=== PATIENT | female | born 1985 | race Caucasian/White ===

== ENCOUNTER 2017-02-05 15:03 | Outpatient (CLI) | payer OTHER | END 2017-02-05 15:04 | disposition home or self-care (01) | DX: M85.861 Other specified disorders of bone density and structure, right lower leg (principal); Z82.62 Family history of osteoporosis ==

== ENCOUNTER 2017-02-09 11:50 | Outpatient (CLI) | payer OTHER ==
[2017-02-09] MEDS ORDERED: GADOPENTETATE DIMEGLUMINE 5 ML VIAL IVP ONE (13:25)
[2017-02-09] MEDS ORDERED: BUFFERED LIDOCAINE 10 ML SYRINGE IU ONE (13:25)
[2017-02-09] MEDS ORDERED: IOTHALAMATE MEGLUMINE 50 ML VIAL IVP ONE (13:25)
[2017-02-09] MEDS ORDERED: LIDOCAINE 1% 50 ML MDV SUBQ ONE (13:25)
== END 2017-02-09 11:51 | disposition home or self-care (01) ==
DX: M25.551 Pain in right hip (principal); M16.11 Unilateral primary osteoarthritis, right hip; M51.37 Other intervertebral disc degeneration, lumbosacral region; M85.69 Other cyst of bone, multiple sites; M25.461 Effusion, right knee; M23.91 Unspecified internal derangement of right knee
CPT/HCPCS: 20610; 73721; 73722; 77002; Q9961

== ENCOUNTER 2017-04-03 09:55 | Outpatient (CLI) | payer OTHER | END 2017-04-03 09:56 | disposition home or self-care (01) | LOC: SC 09:55 | PROVIDERS: ATTEND Internal Medicine Pulmonary Disease | DX: G47.30 Sleep apnea, unspecified (principal); G47.8 Other sleep disorders; R06.83 Snoring; G47.10 Hypersomnia, unspecified; G47.00 Insomnia, unspecified | CPT/HCPCS: 99203; 99212 ==

== ENCOUNTER 2017-04-04 22:17 | Outpatient (CLI) | payer OTHER | END 2017-04-04 22:18 | disposition home or self-care (01) | LOC: SC 22:17 | PROVIDERS: ATTEND Internal Medicine Pulmonary Disease | DX: G47.30 Sleep apnea, unspecified (principal); G47.8 Other sleep disorders | CPT/HCPCS: 95810 ==

== ENCOUNTER 2017-04-18 08:52 | Outpatient (CLI) | payer OTHER | END 2017-04-18 08:53 | disposition home or self-care (01) | LOC: SC 08:52 | PROVIDERS: ATTEND Nurse Practitioner Family | DX: R06.83 Snoring (principal); G47.00 Insomnia, unspecified; R53.83 Other fatigue | CPT/HCPCS: 99212; 99213 ==

== ENCOUNTER 2017-05-24 11:16 | Outpatient (CLI) | payer OTHER | END 2017-05-24 11:17 | disposition home or self-care (01) | LOC: SC 11:16 | PROVIDERS: ATTEND Nurse Practitioner Family | DX: G47.00 Insomnia, unspecified (principal) | CPT/HCPCS: 99212; 99214 ==

== ENCOUNTER 2017-06-21 08:58 | Outpatient (CLI) | payer OTHER | END 2017-06-21 08:59 | disposition home or self-care (01) | LOC: SC 08:58 | PROVIDERS: ATTEND Nurse Practitioner Family | DX: G47.00 Insomnia, unspecified (principal) | CPT/HCPCS: 99212; 99214 ==

== ENCOUNTER 2017-09-17 12:40 | Outpatient (CLI) | payer OTHER ==
[~2017-09-17 12:40] MED LIST: GADOBUTROL 10 MMOL/10 ML VIAL ONE
[2017-09-17] MEDS ORDERED: GADOBUTROL 10 MMOL/10 ML VIAL IVP ONE (13:40)
--- NOTE | 2017-09-17 15:29 | MRI Report ---
EXAM: MRI BRAIN WITHOUT AND WITH CONTRAST EXAM DATE: 09/17/2017 01:52 PM. CLINICAL HISTORY: 12-month history of bilateral pulsatile tinnitus. Right occipital headache. COMPARISON: None. MRA of the head 09/17/2017. TECHNIQUE: Multiplanar, multisequence T1-weighted and fluid-sensitive MR sequences of the brain were performed. Sequences optimized for routine and IAC evaluation. Other: None. IV Contrast: 9 cc Gadavis t. FINDINGS: Brain Volume: Normal for age. Parenchyma/Dura: No acute hemorrhage, mass, or acute infarct. No white matter lesions identified.No a bnormal enhancement. No abnormal enhancement. Ventricles/Cisterns: No hydrocephalus. No abnormal extra-axial fluid collection or hemorrhage. Orbits: Symmetric and unremarkable. Sella Turcica: Note is made of mild CSF prominence in the superior aspect of the sella turcica center ed to the right of midline. This measures approximately 4 x 7 x 7 mm in size. This likely represents a partially empty sella turcica. Pituitary tissue inferior and peripheral to this is unremarkable. Pi tuitary stalk is unremarkable. The cavernous sinuses, suprasellar cistern, and optic chiasm are unrem arkable. IAC: Internal auditory canals and cerebellopontine angle cisterns are symmetric and unremarkable. No abnormal enhancement. Note is made of a vascular loop within the IAC bilaterally. The inner ear struc tures are symmetric and unremarkable. Vasculature: Normal signal flow void is seen in the major arterial structures at the skull base. The dural sinuses are patent and enhance normally. Sinuses: Mild mucosal thickening is seen throughout the paranasal sinuses. No opacification or layeri ng fluid levels. The mastoid air cells are clear. Bones: No focal pathologic appearing marrow signal changes. Other: None. IMPRESSION: 1. Normal MRI of the brain without and with contrast. 2. Normal MRI of the IAC and posterior fossa. [facility] Referring Provider Line: [phone] SITE ID: [id number]
--- NOTE | 2017-09-17 15:29 | MRI Report ---
EXAM MRA BRAIN EXAM DATE: 09/17/2017 01:19 PM. CLINICAL HISTORY: 12 month history of bilateral pulsatile tinnitus. Right occipital headache. COMPARISON: None. MRI of the head 09/17/2017. TECHNIQUE: Multiplanar, multisequence MRA sequences of the brain were performed. Other: None. Post-pr ocessing: Multiplanar 3D MIP reconstructions. IV Contrast: None. FINDINGS: RIGHT Internal Carotid (ICA): No aneurysm, stenosis or anomaly. Middle Cerebral (MCA): No aneurysm, stenosis or anomaly. Anterior Cerebral (ISABEL): No aneurysm, stenosis or anomaly. Note is made of azygos A2 and A3 segment. Posterior Cerebral (PATROL MAN): No aneurysm, stenosis or anomaly. Posterior Communicating (P-COM): Not visualized. Vertebral: No aneurysm, stenosis or anomaly in the visualized upper vertebral artery. LEFT Internal Carotid (ICA): No aneurysm, stenosis or anomaly. Middle Cerebral (MCA): No aneurysm, stenosis or anomaly. Anterior Cerebral (ISABEL): No aneurysm, stenosis or anomaly. Note is made of azygos A2 and A3 segment. Posterior Cerebral (PATROL MAN): No aneurysm, stenosis or anomaly. Posterior Communicating (P-COM): Not visualized. Vertebral: No aneurysm, stenosis or anomaly in the visualized upper vertebral artery. MIDLINE Anterior Communicating (A-COM): Not present. Bilateral A1 segments join forming azygos A2 segment of ISABEL. Basilar artery: No aneurysm, stenosis or anomaly. Bilateral AICA and superior cerebellar arteries are unremarkable. Other: None. IMPRESSION: 1. Normal brain MRA. No stenoses or aneurysms. 2. Note is made of azygos A2/A3 segment of ISABEL. [facility] Referring Provider Line: [phone] SITE ID: [id number]
== END 2017-09-17 12:41 | disposition home or self-care (01) ==
LOC: DI 12:40
PROVIDERS: ATTEND Registered Nurse Diabetes Educator
DX: H93.A3 Pulsatile tinnitus, bilateral (principal); R51 Headache
CPT/HCPCS: 70544; 70553; A9585

== ENCOUNTER 2017-12-13 11:06 | Outpatient (CLI) | payer OTHER ==
--- NOTE | 2017-12-13 19:43 | XRAY Report ---
DATE OF SERVICE: 12/13/2017 THREE VIEW RIGHT ANKLE: 12/13/2017 CLINICAL INDICATION: Pain, history of fractures and hardware removal. AP, lateral, oblique views of the right ankle demonstrate postoperative changes. Mild osteoarthritis is seen in the tibiotalar joint. There is no evidence of acute fracture. A small plantar calcaneal spur is present. IMPRESSION: Mild osteoarthritic changes. Previous fractures and hardware removal. TD: 12/13/2017 20:42
== END 2017-12-13 11:07 | disposition home or self-care (01) ==
LOC: DI 11:06
DX: M19.071 Primary osteoarthritis, right ankle and foot (principal)

== ENCOUNTER 2020-06-23 08:07 | Outpatient (CLI) | payer OTHER ==
[2020-06-23] MEDS ORDERED: GADOBUTROL 10 MMOL/10 ML VIAL ONE (09:13)
[2020-06-23] MEDS ORDERED: GADOBUTROL 10 MMOL/10 ML VIAL IVP ONE (09:56)
--- NOTE | 2020-06-23 12:45 | MRI Report ---
PROCEDURE: Ankle RT W/WO INDICATIONS: RT ANKLE POSTRAUMATIC ARTHRITIS TECHNIQUE: Right ankle was images with the following pulse sequences Sagittal T1-weighted, fat-suppressed T2-weighted, Coronal T1-weighted, fat-suppressed T2-weighted, Axial proton density weighted, fat-suppressed T2-weighted Postcontrast axial, sagittal and coronal fat-suppressed T1-weighted. COMPARISON: None. FINDINGS: Motion degradation of the study. Postsurgical changes and associated bright dark artifact involving the distal tibia and fibula. No geronimo spicious enhancement seen. Bones and joints: No acute fracture. No suspicious osseous lesion of the midfoot or hindfoot bones is present. No joint effusions. No osteochondral defects. There is diffuse hindfoot and midfoot degenerative spurring and subchondral sclerosis Medial structures: Deltoid ligament intact. Spring ligament intact. Posterior tibialis intact Flexor digitorum longus intact Flexor hallucis longus intact Posterior tibial neurovascular bundle appears normal within the tarsal tunnel, without extrinsic mass effect. Lateral structures: Anterior talofibular ligament intact. Calcaneofibular ligament intact. Posterior talofibular ligament intact. Anterior tibiofibular ligament intact. Posterior tibiofibular ligament intact. Peroneus longus normal Peroneus brevis normal. Sinus tarsi demonstrates normal fatty signal. Anterior structures: Dorsal talonavicular ligament intact. Tibialis anterior normal Extensor hallucis longus normal. Extensor digitorum longus normal Posterior and plantar structures: Mild low signal thickening of the distal Achilles tendon suggestive of chronic tendinopathy. The medial and lateral bands of the plantar fascia are within normal limits. 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
== END 2020-06-23 08:08 | disposition home or self-care (01) ==
LOC: DI 08:07
PROVIDERS: ATTEND Internal Medicine
DX: M19.171 Post-traumatic osteoarthritis, right ankle and foot (principal); M67.971 Unspecified disorder of synovium and tendon, right ankle and foot
CPT/HCPCS: 73723; A9585

== ENCOUNTER 2023-05-24 16:06 | Emergency (ER) | payer OTHER ==
[2023-05-24] MEDS ORDERED: diphenhydrAMINE INJ 50 MG/ML VIAL IVP STA (16:13)
[2023-05-24] MEDS ORDERED: FAMOTIDINE 20 MG/2 ML VIAL IVP STA (16:14)
[2023-05-24] MEDS ORDERED: methylPREDNISolone SUCCINATE 125 MG/2 ML VIAL IVP STA (16:14)
[2023-05-24] MEDS ORDERED: EPINEPHrine 1 MG/ML AMP IM STA (16:14)
--- NOTE | 2023-05-24 16:14 | ED Physician Documentation ---
History of Present Illness - Stated complaint Stated Complaint: HIVES, SOA - History obtained from History obtained from: Patient - Additonal information Additional information: 38-year-old woman with history of dermatographism, photodermatitis, eczema who routinely takes cetirizine and hydroxyzine. Her usual rash has been worse than yesterday and over the last few hours has had some sensation of throat and tongue swelling and tightness. That is not something she is ever had with this before. She is never used epinephrine. PD PAST MEDICAL HISTORY - Past Medical History Derm: None - Past Surgical History Past Surgical History: No - Present Medications Home Medications: Ambulatory Orders Medication Instructions Recorded Confirmed Ibuprofen 600 mg PO Q6HR PRN #30 tablet 05/11/14 diphenhydrAMINE [Benadryl] 50 mg PO Q4-6H PRN #30 capsule 07/17/16 EPINEPHrine [Epinephrine] 0.3 mg IJ ONCE PRN #2 each 05/24/23 predniSONE [Deltasone] 60 mg PO DAILY 5 Days #15 tablet 05/24/23 - Allergies Allergies/Adverse Reactions: Allergies Allergy/AdvReac Type Severity Reaction Status Date / Time No Known Drug Allergies Allergy Verified 05/11/14 17:33 - Social History Does the pt smoke?: Yes Smoking Status: Current every day smoker Does the pt drink ETOH?: Yes Does the pt have substance abuse?: Yes - Immunizations Immunizations are current?: Yes PD ED PE NORMAL - Vitals Vital signs reviewed: Yes - General General: Alert and oriented X 3, No acute distress - HEENT HEENT: Other (Visualized portions of the oropharynx and phonation appear normal.) - Respiratory Respiratory: No respiratory distress, Clear bilaterally - Derm Derm: Normal color, Warm and dry - Extremities Extremities: Other (Diffuse erythroderma with more raised hives especially on the upper arms.) - Neuro Neuro: Alert and oriented X 3, Normal speech Results - Vitals Vitals: Vital Signs - 24 hr 05/24/23 05/24/23 05/24/23 16:12 16:23 16:48 Temperature 37.2 C Heart Rate 87 92 84 Respiratory 19 12 Rate Blood Pressure 156/104 H 121/80 O2 Saturation 98 97 99 05/24/23 17:16 Temperature Heart Rate 80 Respiratory 18 Rate Blood Pressure 117/63 O2 Saturation 96 Oxygen O2 Source Room air PD Medical Decision Making - ED course ED course: 38-year-old woman with history of multiple issues with her skin now presents wit h throat swelling. Her phonation and exam are normal. That said out of abundance of caution she was administered epinephrine IM which she did get relief from but it made her feel jittery. She also received IV steroids, Benadryl, and Pepcid here. She was observed till little after 6:15 PM without recurrence of symptoms. Departure - Departure Disposition: 01 Home, Self Care Clinical Impression: Allergic urticaria Condition: Good Record reviewed to determine appropriate education?: Yes Instructions: ED Allergic Reaction General Other Prescriptions: predniSONE [Deltasone] 60 mg PO DAILY 5 Days #15 tablet EPINEPHrine [Epinephrine] 0.3 mg IJ ONCE PRN #2 each PRN Reason: Allergy Symptoms Comments: You were seen today for either an allergic reaction or some other autoimmune process that give you more severe symptoms than usual. You had improvement with epinephrine, IV steroids, Benadryl, Pepcid. 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 Return for new or worsening symptoms. I did prescribe epinephrine and steroids. The steroids should be taken for the next few days. The epinephrine if you have a recurrence of severe symptoms. Forms: Activity restrictions
[2023-05-24 18:18] VITALS: BP 111/73
== END 2023-05-24 18:14 | disposition home or self-care (01) ==
LOC: ED 16:06
DX: L50.0 Allergic urticaria (principal); F17.200 Nicotine dependence, unspecified, uncomplicated
CPT/HCPCS: 36415; 96372; 96374; 99283; 99284; J1200

== ENCOUNTER 2023-06-13 10:44 | Outpatient (CLI) | payer OTHER ==
--- NOTE | 2023-06-25 11:25 | Ultrasound Report ---
LIMITED ULTRASOUND OF LEFT BREAST: 06/13/2023 CLINICAL: Nipple discharge, both breasts, not bloody. Bloody nipple discharge left breast. Comparison is made to exam dated: 06/13/2023 mammogram - [facility]. Color flow ultrasound of the left breast retroareolar was performed. [place] scale images of the real- time examination were reviewed. No significant abnormalities were seen sonographically in the left breast. IMPRESSION: NEGATIVE There is no sonographic evidence of malignancy. There is no abnormality seen in the left breast to correspond with the non-bloody discharge from the nipple, however, clinical correlation and clinical followup are recommended. Return to annual mammogram screening schedule is recommended. Due to patient's discharge symptoms and elevated lifetime risk, please consider referral for breast M RI. This exam was interpreted at Station ID: [id number]. Electronically Signed By: Roel Cuevas M.D. lc/:06/25/2023 10:55:07 Ultrasound BI-RADS: 1 Negative BI-RADS CATEGORY: (1) - 1 RECOMMENDATION: (ANNUAL) - Recommend routine annual screening mammography. [id number] return to screening LATERALITY: (B)
--- NOTE | 2023-06-25 11:25 | Ultrasound Report ---
LIMITED ULTRASOUND OF RIGHT BREAST: 06/13/2023 CLINICAL: Nipple discharge, both breasts, not bloody. Bloody nipple discharge left breast. Comparison is made to exam dated: 06/13/2023 mammogram - [facility]. Ultrasound of the right breast retroareolar was performed. [place] scale images of the real-time examin ation were reviewed. No significant abnormalities were seen sonographically in the right breast. IMPRESSION: NEGATIVE There is no sonographic evidence of malignancy. There is no abnormality seen in the right breast to correspond with the bloody discharge from the nip ple, however, clinical correlation and clinical followup are recommended. Due to patient's discharge symptoms and elevated lifetime risk, please consider referral for breast M RI. Return to annual mammogram screening schedule is recommended. This exam was interpreted at Station ID: [id number]. Electronically Signed By: Roel Cuevas M.D. lc/:06/25/2023 10:55:26 letter sent: No_Letter Ultrasound BI-RADS: 1 Negative BI-RADS CATEGORY: (1) - 1 RECOMMENDATION: (ANNUAL) - Recommend routine annual screening mammography. [id number] return to screening LATERALITY: (B)
--- NOTE | 2023-06-25 11:25 | Mammography Report ---
BILATERAL DIGITAL DIAGNOSTIC MAMMOGRAM 3D/2D: 06/13/2023 CLINICAL: Baseline exam. Bloody nipple discharge left breast. No prior exams were available for comparison. Both breasts are heterogeneously dense, which may obscure small masses (category c / 51-75% glandular tissue). No significant masses, calcifications, or other findings are seen in either breast. IMPRESSION: INCOMPLETE: NEEDS ADDITIONAL IMAGING EVALUATION There is no abnormality seen in the right breast to correspond with the non-bloody discharge from the nipple, however, ultrasound is recommended. There is no abnormality seen in the left breast to susy espond with the bloody discharge from the nipple, however, ultrasound is recommended. Based on Tyrer-Cuzick model (a risk assessment model), the patient's lifetime risk is 25.4% and her 1 0 year risk is 3.1%. If a patient has an elevated risk, a more comprehensive evaluation should be con sidered and/or a referral to a genetic counselor. The [place] [employer], [employer], and NCCN Guidelines advise the consideration of Breast MRI as an adjunct to screening mammog jaden in patients whose "Lifetime risk to develop breast cancer" is 20% or higher. This exam was interpreted at Station ID: [id number]. NOTE: For mammograms, a report in lay terms will be sent to the patient. Approximately 15% of breast malignancies will not be visualized mammographically. In the management of a palpable breast mass, a negative mammogram must not discourage biopsy of a clinically suspicious lesion. Electronically Signed By: Roel Cuevas M.D. lc/:06/13/2023 11:59:41 ACR BI-RADS Category 0: Incomplete 3340F PARENCHYMAL PATTERN: (D) - The breast(s) demonstrate(s) heterogeneously dense fibroglandular parenchy ma. BI-RADS CATEGORY: (0) - 0 Ultrasound [id number] Immediate follow-up LATERALITY: (B)
== END 2023-06-13 10:45 | disposition home or self-care (01) ==
LOC: DI 10:44
PROVIDERS: ATTEND Nurse Practitioner Primary Care
DX: N64.52 Nipple discharge (principal)

== ENCOUNTER 2023-07-31 09:28 | Emergency (ER) | payer OTHER ==
--- NOTE | 2023-07-31 10:40 | ED Physician Documentation ---
PD HPI LOWER EXT INJURY - Stated complaint Stated Complaint: LT HIP PX - Chief complaint Chief Complaint: General - History obtained from History obtained from: Patient - History of Present Illness Type of injury: Twist (she had been moving furniture and boxes earlier in the day and then was just standing and turning a bit, with onset of pain left anterior hip.). No: Fall Where injury occurred: Home Timing - onset: Yesterday Timing - duration: Days (1) Timing - details: Abrupt onset, Still present Worsened by: Moving. No: Palpating Associated symptoms: No: Weakness, Numbness, Swelling Similar symptoms before: Has not had sx before (history of back pain and other muscle pains. No prior hip pain. No systemic arthritis.) Review of Systems Constitutional: denies: Fever, Chills Musculoskeletal: reports: Back pain (chronic) Neurologic: denies: Focal weakness, Numbness PD PAST MEDICAL HISTORY - Past Medical History Derm: None - Past Surgical History Past Surgical History: No - Present Medications Home Medications: Ambulatory Orders Medication Instructions Recorded Confirmed Ibuprofen 600 mg PO Q6HR PRN #30 tablet 05/11/14 07/31/23 EPINEPHrine [Epinephrine] 0.3 mg IJ ONCE PRN #2 each 05/24/23 07/31/23 Cyclobenzaprine [Flexeril] 10 mg PO TID PRN 07/31/23 07/31/23 Gabapentin [Neurontin] 300 mg PO TID 07/31/23 07/31/23 Oxycodone HCl/Acetaminophen 1 each PO Q6H PRN #18 tablet 07/31/23 [Percocet 5-325 mg Tablet] - Allergies Allergies/Adverse Reactions: Allergies Allergy/AdvReac Type Severity Reaction Status Date / Time No Known Drug Allergies Allergy Verified 07/31/23 09:35 - Social History Does the pt smoke?: Yes Smoking Status: Current every day smoker Does the pt drink ETOH?: Yes Does the pt have substance abuse?: Yes - Immunizations Immunizations are current?: Yes - POLST Patient has POLST: No PD ED PE NORMAL - Vitals Vital signs reviewed: Yes - General General: Alert and oriented X 3, Well developed/nourished - Derm Derm: Normal color, Warm and dry, No rash - Extremities Extremities: Other (pain left anterior hip, most with internal rotation and flexion of hip. Not as much with external rotation and extension. ) - Neuro Neuro: Alert and oriented X 3, No motor deficit, No sensory deficit Results - Vitals Vitals: Vital Signs - 24 hr 07/31/23 11:48 Heart Rate 69 Respiratory 16 Rate Blood Pressure 120/82 H O2 Saturation 99 Oxygen O2 Source Room air - Rads (name of study) left hip Relevant Findings:: Prelim report reviewed (no fracture nor dislocation.), EMP independent interpretation of test (no signs of degenerative changes. ) PD Medical Decision Making - ED course Complexity details: considered differential (seems hip muscle strain. Consider piriformis muscle given movements that hurt. ), d/w patient Departure - Departure Disposition: Home, Self Care Clinical Impression: Strain of left hip Qualifiers: Encounter type: initial encounter Qualified Code(s): S76.012A - Strain of muscle, fascia and tendon of left hip, initial encounter Condition: Stable Record reviewed to determine appropriate education?: Yes Instructions: ED Sprain Hip Follow-Up: NICHOLAS WOMACK ARNP [Primary Care Provider] - [facility] [Provider Group] Prescriptions: Oxycodone HCl/Acetaminophen [Percocet 5-325 mg Tablet] 1 each PO Q6H PRN #18 tablet PRN Reason: pain Comments: Your x-ray appears normal without any signs of bony abnormality nor dislocation. It does sound like a strain of the hip muscle, probably the piriformis or one of the other similar. Use the crutches for partial weightbearing to help reduce some of the force and use of the hip muscles. Do not try to hold your leg in the air type of crutch use as I will actually use the hip muscles more. Continue with a fairly normal gait but just take some of the weight off with the crutches. Continue with anti-inflammatory such as ibuprofen. Add the cyclobenzaprine muscle relaxant. Continue your other usual medicines. To this add Tylenol every 4-6 hours if needed for pain or Percocet if needed for worse pain. This would be intended short-term. I would and anticipate the muscle strain they are to improve over several days to a week but it may even be a week or 2 for full improvement. Follow-up with your primary care or orthopedic office if not improving reasonably well over the next week. [facility] I am prescribing a short course of narcotic pain medication for you. These are potentially dangerous and addictive medications that should be used carefully. These medications may constipate you. Take an [id number] stool softener such as docusate twice daily with plenty of water while taking these medications. If you go 24 hours without a bowel movement, take [id number] MiraLAX, per package instructions. Do not drink or drive while taking these medications. If you received narcotic or sedating medications while in the emergency department do not drive for 24 hours. Store this medication in a safe, secure place and out of reach of children. It is a violation of federal law to give or sell this medication to another person or to use in a manner other than prescribed. The ED will not refill narcotic prescriptions, including prescriptions lost or stolen. You can dispose of unwanted medications at the [facility]'s office or at several pharmacies such as [facility]. Forms: PCP List Discharge Date/Time: 07/31/23 12:22
[2023-07-31] MEDS ORDERED: HYDROmorphone 1 MG/ML CARPUJECT IM STA (11:28)
[2023-07-31] MEDS ORDERED: KETOROLAC 30 MG/ML VIAL IM STA (11:28)
[2023-07-31 11:51] VITALS: BP 120/82; O2SAT 99
--- NOTE | 2023-07-31 12:07 | XRAY Report ---
PROCEDURE: Hip w/Pelvis 2-3V LT INDICATIONS: abrupt pain left hip while twisting TECHNIQUE: AP pelvis with lateral view(s) of the left hip(s). COMPARISON: None. FINDINGS: Bones: No displaced fracture or dislocation. No high-grade degenerative changes. Soft tissues: No suspicious calcifications. IMPRESSION: No acute radiographic abnormality. If there is high concern for occult injury, consider repeat radiog jaden or cross-sectional imaging. Reviewed by: Roel Cuevas MD on 07/31/2023 12:06 PM PDT Approved by: Roel Cuevas MD on 07/31/2023 12:06 PM PDT Station ID: [id number]
== END 2023-07-31 12:22 | disposition home or self-care (01) ==
LOC: ED 09:28
DX: S76.012A Strain of muscle, fascia and tendon of left hip, initial encounter (principal); X58.XXXA Exposure to other specified factors, initial encounter; F17.200 Nicotine dependence, unspecified, uncomplicated
CPT/HCPCS: 73502; 96372; 99284; J1170

== ENCOUNTER 2023-10-04 15:08 | Outpatient (CLI) | payer OTHER ==
[2023-10-04 15:36] LABS: BUN - BLOOD UREA NITROGEN 12 mg/dL (6-20); CALCIUM 9.2 mg/dL (8.5-10.3); CARBON DIOXIDE - CO2 27 mmol/L (21-32); CHLORIDE 106 mmol/L (101-111); CREATININE 0.7 mg/dL (0.6-1.3); GFR - MDRD 93 (>89); GLUCOSE 85 mg/dL (74-104); POTASSIUM 4.2 mmol/L (3.5-4.5); SODIUM 140 mmol/L (135-145)
[2023-10-04 16:14] LABS: PROLACTIN 20.35 ng/mL
== END 2023-10-04 15:09 | disposition home or self-care (01) ==
LOC: LAB 15:08
PROVIDERS: ATTEND Surgery
DX: O92.6 Galactorrhea (principal)
CPT/HCPCS: 36415; 80048; 84146; 84439; 84443; 84702

== ENCOUNTER 2024-07-06 15:52 | Emergency (ER) | payer OTHER ==
[2024-07-06 16:25] LABS: BASOPHILS # (AUTO) 0.1 10^3/uL (0.0-0.1); BASOPHILS % (AUTO) 0.5 %; EOSINOPHILS # (AUTO) 0.2 10^3/uL (0.0-0.7); EOSINOPHILS % (AUTO) 1.5 %; HCT - HEMATOCRIT 42.6 % (37.0-47.0); HGB - HEMOGLOBIN 14.1 g/dL (12.0-16.0); LYMPHOCYTES % (AUTO) 19.3 %; MEAN CORPUSCULAR HEMOGLOBIN 29.4 pg (27.0-31.0); MEAN CORPUSCULAR HGB CONC 33.1 g/dL (32.0-36.0); MEAN CORPUSCULAR VOLUME 88.8 fL (81.0-99.0); MEAN PLATELET VOLUME 9.3 fL (7.9-10.8); MONOCYTES % (AUTO) 6.5 %; NEUTROPHILS # (AUTO) 11.2 10^3/uL (1.5-6.6); NEUTROPHILS % (AUTO) 71.9 %; PLT - PLATELET COUNT 256 10^3/uL (130-450); RED CELL DISTRIBUTION WIDTH 12.5 % (12.0-15.0); WHITE BLOOD COUNT 15.6 x10^3/uL (4.8-10.8)
[2024-07-06 16:29] LABS: BILIRUBIN,URINE NEGATIVE (NEGATIVE); GLUCOSE, URINE (UA) NEGATIVE (NEGATIVE); KETONES,URINE (UA) NEGATIVE (NEGATIVE); LEUKOCYTE ESTERASE, URINE NEGATIVE (NEGATIVE); NITRITE,URINE NEGATIVE (NEGATIVE); OCCULT BLOOD,URINE NEGATIVE (NEGATIVE); PROTEIN,URINE NEGATIVE (NEGATIVE); UROBILINOGEN,URINE 1 (NORMAL) E.U./dL (NORMAL)
[2024-07-06 16:30] LABS: CLARITY,URINE CLEAR (CLEAR)
--- NOTE | 2024-07-06 16:34 | ED Physician Documentation ---
History of Present Illness - Stated complaint Stated Complaint: LT SIDE ABD PX - Chief complaint Chief Complaint: Abd Pain - Additonal information Additional information: Patient is a 39-year-old female presenting to the emergency department with left lower quadrant pain. Patient notes symptoms started suddenly around 5 AM this morning. She notes she had a bowel movement with some mild diarrhea this morning but no relief in her symptoms. She denies any fevers no chills but she is having some mild nausea. She denies any pain radiating up to her abdomen no chest pain or shortness of breath associated with her symptoms. She denies ever having any abdominal surgeries. She has an IUD in place denies being at this time. She denies any urinary symptoms including frequency or dysuria or hematuria. No history of nephro or urolithiasis. PD PAST MEDICAL HISTORY - Past Medical History Past Medical History: Yes Cardiovascular: None Respiratory: None Neuro: Peripheral neuropathy Endocrine/Autoimmune: None GI: None BUSINESS SERVICES ASSOCIATE: None : None HEENT: None Psych: Anxiety, Post traumatic stress disorder, Other Musculoskeletal: Osteoarthritis, Osteopenia, Chronic back pain, Other Derm: None - Past Surgical History Past Surgical History: No Ortho: Other - Present Medications Home Medications: Ambulatory Orders Medication Instructions Recorded Confirmed Ibuprofen 600 mg PO Q6HR PRN #30 tablet 05/11/14 07/31/23 EPINEPHrine [Epinephrine] 0.3 mg IJ ONCE PRN #2 each 05/24/23 07/31/23 Cyclobenzaprine [Flexeril] 10 mg PO TID PRN 07/31/23 07/31/23 Gabapentin [Neurontin] 300 mg PO TID 07/31/23 07/31/23 Oxycodone HCl/Acetaminophen 1 each PO Q6H PRN #18 tablet 07/31/23 [Percocet 5-325 mg Tablet] Amox/Clav 875/125 [Augmentin] 1 each PO Q12H #20 tablet 07/06/24 - Allergies Allergies/Adverse Reactions: Allergies Allergy/AdvReac Type Severity Reaction Status Date / Time No Known Drug Allergies Allergy Verified 07/06/24 16:00 - Social History Does the pt smoke?: Yes Smoking Status: Current every day smoker Does the pt drink ETOH?: Yes Does the pt have substance abuse?: Yes - Immunizations Immunizations are current?: Yes - POLST Patient has POLST: No PD ED PE NORMAL - Vitals Vital signs reviewed: Yes - General General: Alert and oriented X 3 - HEENT HEENT: Atraumatic - Neck Neck: Supple, no meningeal sign - Cardiac Cardiac: RRR, No murmur, No gallop, No rub - Respiratory Respiratory: No respiratory distress, Clear bilaterally - Abdomen Abdomen: Normal bowel sounds, Other (Tenderness to abdomen on examination with active bowel sounds reproducible tenderness to left lower quadrant with guarding on examination. No rebound. Negative Rovsing sign. Negative Graham's and Mcburney's point tenderness.) - Female Female : Deferred - Rectal Rectal: Deferred - Back Back: No CVA TTP - Derm Derm: Normal color, No rash Results - Vitals Vitals: Vital Signs - 24 hr 07/06/24 07/06/24 16:00 16:59 Temperature 36.9 C Heart Rate 100 98 Respiratory 16 Rate Blood Pressure 136/75 H 114/72 O2 Saturation 98 95 Oxygen O2 Source Room air - Labs Labs: Laboratory Tests 07/06/24 07/06/24 07/06/24 16:18 16:18 16:20 WBC 15.6 H RBC 4.80 Hgb 14.1 Hct 42.6 MCV 88.8 MCH 29.4 MCHC 33.1 RDW 12.5 Plt Count 256 MPV 9.3 Neut # (Auto) 11.2 H Lymph # (Auto) 3.0 [place] # (Auto) 1.0 Eos # (Auto) 0.2 Baso # (Auto) 0.1 Absolute Nucleated RBC 0.00 Nucleated RBC % 0.0 Sodium Potassium Chloride Carbon Dioxide Anion Gap BUN Creatinine Estimated GFR (MDRD) Glucose Calcium Total Bilirubin AST ALT Alkaline Phosphatase Total Protein Albumin Globulin Albumin/Globulin Ratio Lipase Urine Color YELLOW Urine Clarity CLEAR Urine pH 7.0 Ur Specific Denio 1.020 Urine Protein NEGATIVE Urine Glucose (UA) NEGATIVE Urine Ketones NEGATIVE Urine Occult Blood NEGATIVE Urine Nitrite NEGATIVE Urine Bilirubin NEGATIVE Urine Urobilinogen 1 (NORMAL) Ur Leukocyte Esterase NEGATIVE Ur Microscopic Review NOT INDICATED Urine Culture Comments NOT INDICATED Urine HCG, Qual NEGATIVE 07/06/24 16:20 WBC RBC Hgb Hct MCV MCH MCHC RDW Plt Count MPV Neut # (Auto) Lymph # (Auto) [place] # (Auto) Eos # (Auto) Baso # (Auto) Absolute Nucleated RBC Nucleated RBC % Sodium 137 Potassium 3.8 Chloride 103 Carbon Dioxide 27 Anion Gap 7.0 BUN 9 Creatinine 0.8 Estimated GFR (MDRD) 79 L Glucose 137 H Calcium 9.4 Total Bilirubin 0.5 AST 9 L ALT 11 Alkaline Phosphatase 69 Total Protein 7.2 Albumin 4.2 Globulin 3.0 Albumin/Globulin Ratio 1.4 Lipase 19 Urine Color Urine Clarity Urine pH Ur Specific Denio Urine Protein Urine Glucose (UA) Urine Ketones Urine Occult Blood Urine Nitrite Urine Bilirubin Urine Urobilinogen Ur Leukocyte Esterase Ur Microscopic Review Urine Culture Comments Urine HCG, Qual PD Medical Decision Making - ED course Complexity details: reviewed old records, reviewed results ED course: Patient is a 39-year-old female presenting to the emergency department with left lower quadrant pain. Symptoms have been going on since this morning around 05 100. Patient did not take anything for pain. She had a bowel movement this morning with no relief. She did report some mild diarrhea but no black or bloody stools. She denies any fevers with her symptoms. No nausea or vomiting. No history of abdominal surgeries. Vital stable on arrival. Physical exam shows reproducible lower left quadrant pain with guarding on examination no sp ecific rebound. Labs here in the emergency department show mild leukocytosis at 15 hemoglobin is stable CMP is unremarkable with no significant ENRIQUETA.Urine shows no signs of UTI additionally no positive test. Patient updated on reassuring findings will obtain CT abdomen concern for possible diverticulitis versus abscess versus colitis. Patient sent for CT scan which shows acute diverticulitis. This would be patient's first episode of diverticulitis. Will cover with antibiotics. She was given first dose of Zosyn here in emergency department and will discharge patient on Augmentin. Patient's pain under control here in the emergency department. Discussed with patient given young age of diverticulitis she needs to follow-up with GI. She was instructed that first diagnosis of diverticulitis can sometimes be alternative diagnosis for possible colon cancer. She needs a colonoscopy for further evaluation. Patient instructed to follow-up brat diet to help with her symptoms avoid any nuts or popcorn as this could worsen diverticulitis. She was instructed if she develops worsening pain or fevers to return to emergency department. Patient understands and is agreeable with this plan. Patient also updated on incidental finding of hepatic cyst that may require further imaging in the outpatient setting. Patient understands and is agreeable with this plan. Departure - Departure Disposition: 01 Home, Self Care Clinical Impression: Acute diverticulitis, Liver cyst Condition: Good Instructions: Abdominal Pain, ED Diverticulitis Follow-Up: Blas No MD [Physician No Access] - Cortez Landis MD [Physician No Access] - Comments: You were instructed that first diagnosis of diverticulitis can sometimes be alternative diagnosis for possible colon cancer. You need a colonoscopy for further evaluation. Patient instructed to follow-up brat diet to help with her symptoms avoid any nuts or popcorn as this could worsen diverticulitis. Return with any fevers worsening abdominal pain or any other new or worsening symptoms.Incidental finding of liver cyst noted on imaging you may require further imaging for this. Forms: PCP List
[2024-07-06 16:39] LABS: ALBUMIN 4.2 g/dL (3.2-5.5); ALBUMIN/GLOBULIN RATIO 1.4 (1.0-2.2); BILIRUBIN,TOTAL 0.5 mg/dL (0.2-1.0); CALCIUM 9.4 mg/dL (8.5-10.3); CREATININE 0.8 mg/dL (0.6-1.3); POTASSIUM 3.8 mmol/L (3.5-4.5); TOTAL PROTEIN 7.2 g/dL (6.4-8.9)
[2024-07-06 17:09] LABS: HCG UR QUAL NEGATIVE
[2024-07-06] MEDS ORDERED: iohexoL-300 100 ML VIAL ONE (17:24)
[2024-07-06] MEDS: KETOROLAC 15 MG/ML VIAL IVP STA (17:49)
[2024-07-06] MEDS: iohexoL-300 100 ML VIAL IVP ONE (18:12)
--- NOTE | 2024-07-06 18:48 | CT Report ---
PROCEDURE: Abdomen/Pelvis W INDICATIONS: left quadrant pain concern for divertic TECHNIQUE: Helical axial CT of the abdomen and pelvis was obtained after intravenous contrast adminis tration and reformatted in multiple planes. Radiation dose reduction was achieved using automated exp osure control or adjustment of mA and/or kV according to patient size. COMPARISON: None FINDINGS: Lower thorax: The lung bases are clear. Heart size normal. No hiatal hernia. Liver: Normal in size and attenuation. No contour deformity present. 2 cm enhancing lesion in the ri ght hepatic lobe near the dome Biliary system: No calcified cholelithiasis or pericholecystic inflammation. No evidence of bile du ct dilatation. Pancreas: Unremarkable without mass or inflammation evident. Spleen: Normal in size and density. Adrenals: Normal morphology and density. Reproductive system: Intrauterine device noted in good position. Urinary system: Normal renal size and attenuation. No renal calculi, hydronephrosis, or solid mass p resent. Urinary bladder unremarkable. Gastrointestinal system: Mid sigmoid wall thickening with pericolonic inflammatory change. No bowel obstruction. Small amount of free fluid in pelvis Peritoneal spaces: No mesenteric or retroperitoneal adenopathy. No free air. No free fluid. Vasculature: The IVC, aorta and iliac vasculature are unremarkable. Abdominal wall: Abdominal wall is intact without evidence of ventral or inguinal hernias. Musculoskeletal: Normal bone mineralization. No acute fractures. IMPRESSION: Acute diverticulitis without free air or intra-abdominal abscess. There is small amount of free fluid in pelvis 2 cm enhancing lesion in the liver probable cavernous hemangioma. Consider follow-up nonemergent MRI or hemangioma protocol CT Reviewed by: Erich Goldberg MD on 07/06/2024 5:47 PM AKDT Approved by: Erich Goldberg MD on 07/06/2024 5:47 PM AKDT Station ID: [id number]
[2024-07-06] MEDS: PIPERACILLIN/TAZOBACTAM 3.375 GM in SODIUM CHLORIDE 0.9% MINIBAG 100 ML IV STA (19:01)
[2024-07-06 19:20] VITALS: BP 126/67; O2SAT 96
== END 2024-07-06 19:41 | disposition home or self-care (01) ==
LOC: ED 15:52
DX: K57.92 Diverticulitis of intestine, part unspecified, without perforation or abscess without bleeding (principal); K76.89 Other specified diseases of liver; D72.829 Elevated white blood cell count, unspecified; F17.200 Nicotine dependence, unspecified, uncomplicated; Z79.899 Other long term (current) drug therapy
CPT/HCPCS: 36415; 74177; 80053; 81003; 81025; 83690; 85025; 96365; 96375; 99284; Q9967; 81001; 87086